=== PATIENT | male | born 1960 | race Hispanic/Latino ===

== ENCOUNTER 2018-01-06 10:46 | Observation (INO) | payer SELFPAY ==
[~2018-01-06] VITALS: Ht 170.2 cm; Wt 93.8 kg
[2018-01-06 11:18] LABS: HEMATOCRIT 50.5 % (39.0-50.0); IMMATURE GRANULOCYTES 0.3 % (0.0-1.0); MEAN CELL VOLUME 84.6 fL CALC (80.0-100.0); MEAN CORPUSCULAR HGB 28.5 pG CALC (26.0-32.0); MEAN CORPUSCULAR HGB CONC 33.7 g/L CALC (32.0-36.0); NEUT# 4.27 thou/uL (1.82-7.42); RED BLOOD COUNT 5.97 mill/uL (4.70-6.10); RED CELL DISTRI WIDTH 13.6 % (11.5-15.5)
[2018-01-06 12:15] LABS: ALBUMIN 4.6 g/dL (3.2-5.0); ALKALINE PHOSPHATASE 106 u/l (38-126); ANION GAP 20 (6-22 (CALC)); BILIRUBIN, TOTAL 0.7 mg/dL (0.0-1.4); BUN 15 mg/dL (9-20); BUN/CREATININE RATIO 18 (12-20 (CALC)); CARBON DIOXIDE 27 mmol/l (22-30); CHLORIDE 101 mmol/l (95-108); CREATININE 0.9 mg/dL (0.7-1.3); GFR > 60 ML/MIN (>=60 (CALC)); GFR FOR AFR.AMER. > 60 ML/MIN (>=60 (CALC)); POTASSIUM 3.9 mmol/l (3.5-5.1); SGOT/AST 56 u/l (17-59); SGPT/ALT 60 u/l (21-72); SODIUM 144 mmol/l (137-146); TOTAL PROTEIN 8.9 g/dL (6.3-8.2)
[2018-01-06 12:26] LABS: MYOGLOBIN 43 ng/mL (0 - 121)
[2018-01-06 13:30] VITALS: BP 126/81
[2018-01-06 16:09] VITALS: BP 120/65
[2018-01-06 20:01] VITALS: BP 108/63
[2018-01-06 23:56] VITALS: BP 156/64
[2018-01-07 00:01] VITALS: BP 109/73
[2018-01-07 04:42] VITALS: BP 113/71
[2018-01-07 06:23] LABS: CHOLESTEROL HDL RATIO 3.7 (<4.4 (CALC))
[2018-01-07 07:00] VITALS: BP 127/88
[2018-01-07 11:13] VITALS: BP 122/79
== END 2018-01-07 13:55 | disposition home or self-care (01) | DRG 313 ==
LOC: ED 10:46 → ED-I 12:21 → ED 12:37 → MS2 12:38
PROVIDERS: Emergency Medicine; ADMIT Internal Medicine; ATTEND Internal Medicine
DX: R07.2 Precordial pain (principal); S46.811A Strain of other muscles, fascia and tendons at shoulder and upper arm level, right arm, initial encounter; S46.812A Strain of other muscles, fascia and tendons at shoulder and upper arm level, left arm, initial encounter; X58.XXXA Exposure to other specified factors, initial encounter
CPT/HCPCS: G0378